=== PATIENT | female | born 1955 | race Hispanic/Latino ===

== ENCOUNTER → 2020-01-18 11:28 | Outpatient (CLI) | payer OTHER, MEDICAID, SELFPAY ==
[2020-01-19 08:39] LABS: COVID19 Sendout Not Detected (Not Detect)
== END ==
PROVIDERS: PCP Internal Medicine; Visit Provider Physician Assistant
DX: Z11.59 Encounter for screening for other viral diseases (principal)
CPT/HCPCS: 87635

== ENCOUNTER 2020-01-21 10:26 | Day surgery (SDC) | payer OTHER, MEDICAID, SELFPAY ==
[2020-01-15 13:45] VITALS: BMI 36.8
[2020-01-21] VITALS (15 sets, daily range): BP systolic 81–154; BP diastolic 52–90; PULSE 69–94; RESP 13–72; TEMP 35.1–37; O2SAT 85–98; BMI 36.5
--- NOTE | 2020-01-21 11:16 | DI.RAD.S_ITS ---
PROCEDURE: XR KNEE RT 1TO2V INDICATIONS: post op films TECHNIQUE: 2 view(s) of the knee acquired. COMPARISON: [facility] [place], XR KNEE ARTHRITIC SERIES RT, 11/21/2019, 13:56. FINDINGS: Bones: Patient is status post knee joint arthroplasty. Hardware components are in expected positions. Visualized bony structures are intact. Soft tissues: Overlying postoperative changes are noted. IMPRESSION: Normal postoperative examination. Dictated by: Joe Reveles M.D. on 01/21/2020 at 14:38 Approved by: Joe Reveles M.D. on 01/21/2020 at 14:38
[2020-01-21] MEDS: ACETAMINOPHEN 325 MG TABLET 975 MG PO (11:26)
[2020-01-21] MEDS: LACTATED RINGERS 1,000 ML 42 ML IV ×2 (11:28→14:36)
[2020-01-21] MEDS: CELECOXIB 200 MG CAPSULE PO (11:28)
--- NOTE | 2020-01-21 12:02 | PM.PREOP ---
Pre-operative Note COVID-19 COVID-19 status: Negative Result date/Date tested (Pos, Neg/Pending): 01/18/20 Interval Note History & Physical reviewed/Exam performed by Physician: Yes Changes to H&P: No
--- NOTE | 2020-01-21 12:14 | PM.OP.1 ---
Operative Date/Time/Diagnoses Date of procedure: 01/21/20 Time of procedure: 14:49 Pre-op diagnosis: Right knee osteoarthritis Post-op diagnosis: same Procedure & Clinicians Procedure: Right total knee replacement Same procedure as scheduled: Yes Indications: The patient has had progressively worsening right knee pain with radiographic changes consistent with arthritis. Non-operative management has failed and the patient has requested total knee replacement. The risks, benefits and alternatives to surgery were discussed with the patient prior to proceeding. Risks discussed included, but were not limited to, failure to relieve pain, stiffness, infection, nerve damage, deep venous thrombosis, pulmonary embolism, stroke, coma, heart attack, permanent paralysis and , as well as the potential need for eventual revision of the prosthetic. Surgeon: Ranjit Perez Outdoor Recreation Specialist: Alice Clay Click Yes if Unassisted: No Anesthesia Type: General, Spinal and Local Operative Notes Findings: Significant medial and moderate patellofemoral osteoarthritis. Closure Type: primary Specimen(s): none sent Prosthetic devices, grafts, tissues, transplants, or devices: Implants used in this procedure were manufactured by the [employer] and included the BCS II Journey total knee replacement with a size 2 Oxinium femoral component, a size 2 right non porous tibial base plate, a 10 mm cross-linked polyethylene insert and a 7.5 mm x 29 mm round Hollie II patellar component. Applied: implant(s) Estimated Blood Loss (mL): 25 Blood products transfused: none Tourniquet time (min): 51 Procedure in detail: The patient was seen in the pre-operative area, where the patient identified the right knee as the operative site and this was marked with my initials. The patient received pre-operative antibiotics, and was taken to the operating room and placed on the operative table in the supine position. After satisfactory anesthesia, a radio time buyer out was performed. The right leg was encircled with a tourniquet about the proximal thigh, and the leg was prepared from the toes to the tourniquet with ChloroPrep in the usual fashion and draped through sterile drapes. The leg was elevated and exsanguinated with Eschmark bandage and the tourniquet inflated to 250 mmHg pressure. The knee was approached through an approximately 18 cm incision centered over the patella and carried into the knee through a medial parapatellar arthrotomy. The anterior osteophytes and soft tissues were removed. The rotational landmarks of [place]'s line and the transepicondylar axis were marked on the femur with electrocautery, and intramedullary guide holes for the femur and tibia were created. The distal femoral cut was made in 6 degrees of valgus using the intramedullary guide at the primary cut setting. The proximal tibial cut was then made using the intramedullary guide, taking 9 mm of bone off the less involved side. The extension gap was checked and the rotation of the femoral component confirmed with the gap balancing system. The anterior, posterior and chamfer cuts were then made. The posterior osteophytes and soft tissues were then removed. The posterior capsule was injected with part of a mixture of 60 ml 0.25% Marcaine mixed with 20 ml Exparel and 4 mg of morphine for post-operative pain control. The remainder of this mixture was injected into the capsule and subcutaneous tissues during cement curing. The tibia was prepared with the rotation set by an extra medullary guide. Trial tibial and femoral components were then placed and the intercondylar notch cut through the femoral trial. Range of motion was 0-135 degrees, with good stability throughout the range. The patella was then cut to accommodate the patellar prosthetic. There was no need for a lateral release. The trials were then removed, and the femoral hole plugged with a bone plug. The bone was prepared with pulsatile lavage, and dried with a sponge. Cement was applied and the final prosthetics placed. Excess cement was removed during and after cement curing. After confirming there was no extruded cement posteriorly, the final tibial insert was placed. The knee was copiously irrigated and the tourniquet deflated. Hemostasis was obtained. The capsule was closed with interrupted # 2 polyester suture. The subcutaneous layer was closed with 3-0 Vicryl, and the skin with a running 3-0 V-Lock suture and Dermabond. An Aquacel Ag dressing was applied and the patient was taken to recovery having tolerated the procedure well. Complications: none Post-operative Condition: stable Disposition: PACU Plan for aftercare: The patient will be maintained on a standard total knee replacement protocol with weight bearing as tolerated. The patient will receive aspirin and sequential compression devices for DVT prophylaxis. The patient will be discharged home when safe for the home environment.
[2020-01-21] MEDS: CEFAZOLIN 2 GM/100 ML FROZ.PIGGY IV (13:08)
[2020-01-21] MEDS: TRANEXAMIC ACID 1,000 MG VIAL 1000 MG IV ×2 (13:30→14:28)
--- NOTE | 2020-01-21 13:41 | SUR.OPER ---
Supine on padded OR bed. Pillow under head, arms secured on padded armboards <90 degree abduction. Safety belt across torso. Non-operative leg secured with tape over blanket over lower leg. Operative leg secured in DeMayo/Herberth positioner.
[2020-01-21] MEDS: BUPIVACAINE 0.25% W/ EPI 30 ML VIAL 60 ML INJ (13:53)
[2020-01-21] MEDS: MORPHINE 4 MG/ML INJ INJ (13:54)
[2020-01-21] MEDS: BUPIVACAINE LIPOSOME 266 MG/20 ML VIAL INJ (13:55)
--- NOTE | 2020-01-21 15:34 | SUR.PHASEI ---
Stable PACU stay, report called
--- NOTE | 2020-01-21 15:56 | SUR.PHASEI ---
Pt transported up to room, left in mario condition. Bed low, locked and scd's on, call light in reach.
[2020-01-21] MEDS: LACTATED RINGERS 1,000 ML 100 ML IV (16:06)
[2020-01-21] MEDS: ACETAMINOPHEN 325 MG TABLET 650 MG PO ×2 (16:06→21:00)
--- NOTE | 2020-01-21 16:12 | PC.ADMIT ---
[address] Admission Note: The patient,Chelsy Cuevas,64 y/o, was given written information regarding hospital policies, unit procedures and contact persons. Patient's smoking status: Never smoker. Vital Signs - 8 hr 01/21/20 11:40 01/21/20 15:07 01/21/20 15:12 Temperature 98.6 F 97.7 F Pulse Rate 80 89 90 Respiratory Rate 16 22 20 Blood Pressure 154/90 H 88/55 L 81/52 L Pulse Oximetry 98 85 L 92 01/21/20 15:15 01/21/20 15:17 01/21/20 15:23 Temperature Pulse Rate 94 H 90 91 H Respiratory Rate 18 19 20 Blood Pressure 95/53 L 96/56 L 93/58 L Pulse Oximetry 89 L 94 95 01/21/20 15:31 01/21/20 15:38 01/21/20 15:58 Temperature 97.7 F 95.2 F L Pulse Rate 81 81 73 Respiratory Rate 20 13 16 Blood Pressure 113/64 105/68 117/72 Pulse Oximetry 96 95 95 Patient up from PACU at 1550, Awake and alert. Daughter here to help translate. Drsg (isac bandage) to Rt knee CDI. SCD's in place and IVF infusing. Patient denies pain at this time.
[2020-01-21] MEDS: ONDANSETRON 4 MG ODT PO ×2 (17:02→22:21)
--- NOTE | 2020-01-21 19:20 | PC.NURSE ---
Addendum entered by Ying Dweyr R.N. 01/21/20 21:41: Reports pain to RLE 06/08, took scheduled ibuprofen/tylenol. CMS intact. Denied nausea but after taking her HS meds one at a time she had a few dry heaves and belched. Daughter Nelli stated that her Mom Chelsy said that every time she drinks water she feels nauseated. Small amt of applejuice given per pt request. After belching patient declined antiemetic saying she felt better. Patient & daughter instructed to call nursing for any concerns-they agree to this plan. Original Note: Post-op notes: Chelsy brought from PACU awake, drowsy, oriented to situation. Reports numbness from hips to toes, can wiggle toes, move feet & legs in bed. Feet/legs are warm to the touch, pedal pulses present bilaterally. Wearing calf SCD's bilaterally. IVF infusing as ordered. Shortly after admitted she reported nausea, had few dry heaves, no emesis. medicated with SL Zofran which she said relieved nausea, refusing hydroxyzine when offered. Able to eat few bites of chicken noodle soup, saltines & sip on ice water. Daughter at bedside translating for patient & nursing staff, as patient is Zimbabwean speaking & not fluent in Mongolian. She told her daughter that she felt like she urinated when having dry heaves earlier. Incontinent of large amt of urine, also able to void additional 125 ml urine via bedpan. Linens changed, jarrett-care given. Pt reports feels relief after voiding, denies other needs/concerns. Daughter at bedside, encouraged to call nurse for any needs/concerns.
[2020-01-21] MEDS: DOCUSATE 100 MG CAPSULE PO (21:00)
[2020-01-21] MEDS: METFORMIN HCL 500 MG TABLET PO (21:00)
[2020-01-21] MEDS: ATORVASTATIN 10 MG TABLET PO (21:02)
[2020-01-21] MEDS: ASPIRIN EC 81 MG TABLET PO (21:02)
[2020-01-21] MEDS: IBUPROFEN 400 MG TABLET PO (21:05)
[2020-01-21] MEDS: FLUTICASONE 110MCG HFA 120 PUFF INH (22:16)
[2020-01-22] VITALS: BP 149/80; PULSE 79; RESP 18; TEMP 36.1; O2SAT 94
--- NOTE | 2020-01-22 01:01 | PC.NURSE ---
Addendum entered by Michelle Thayer R.N. 01/22/20 06:38: States numbness in foot is resolved. Pain is 3/10 after being up to BSC but declines offer of pain medication. Removed oxygen to determine if still needed. Original Note: Patient seen and assessed at 2337. Is alert and oriented. Divehi speaking with daughter at bedside interpreting. Breath sounds diminished at bases. On oxygen at 1L/min per NC with sat of 94%. HRR with elevated BP of 149/80. Denies nausea. BT present but denies flatus. Denies dysuria, frequency or urgency with urination. Able to move self in bed. Needs 1 assist + walker when up to BSC due to weakness in right LE. Still has some residual numbness on plantar surface of right foot but other CMS is intact. Aquacel dressing covered with isac wrap to right LE is CDI. Wearing bilateral calf SCD's. Denies pain.
[2020-01-22] MEDS: IBUPROFEN 400 MG TABLET PO ×3 (01:26→09:08)
[2020-01-22] MEDS: LACTATED RINGERS 1,000 ML 100 ML IV (02:45)
[2020-01-22 05:19] VITALS: BP 139/75; PULSE 78; RESP 16; TEMP 36.7; O2SAT 98
[2020-01-22 06:34] LABS: Hemoglobin 10.3 g/dL (12.0-16.0)
[2020-01-22] MEDS: hydrOXYzine pamoate 25 MG CAPSULE PO (07:52)
[2020-01-22] MEDS: OXYCODONE IR 5 MG TABLET PO ×2 (07:52→11:04)
[2020-01-22 07:55] VITALS: BP 136/52; PULSE 75; RESP 17; TEMP 36.8; O2SAT 93
--- NOTE | 2020-01-22 08:13 | P.DS_ITS ---
History of Present Illness History of Present Illness Date Patient Seen: 01/22/20 Time Patient Seen: 08:13 Chief complaint: RT TKA *OPB* Narrative: The history and physical are contained in the chart in a previously completed note. Please refer to that note for this information. Discharge Providers Provider Discharge Date: 01/22/20 Primary care physician: Karen Seth Consults: 01/21/20 15:48 Consult to Discharge Planning Routine Comment: Consult to Physical Therapy Evaluate & Treat Comment: Physician Instructions: postop TKA protocol Consult to Respiratory Therapy Evaluate & Treat Comment: Physician Instructions: Evaluate and treat Discharge provider: Ranjit Perez MD Summary Hospital Course Discharge Diagnosis: 1. Right knee osteoarthritis 2. Post hemorrhagic anemia Hospital Course: The patient was admitted to the hospital and taken directly to the operating room where she underwent a right total knee replacement without complications. She tolerated this procedure well. On postoperative day 1 it is anticipated she will be ready for discharge later today. Status at Discharge Cognitive/behavioral status at discharge: oriented Functional status at discharge: uses cane/walker Overall status at discharge: patient is progressing back to baseline Time Spent with Patient Time spent: Less than 30 minutes Exam Vital Signs (past 8 hours): - 01/22/20 05:19 Temperature 98.0 F Pulse Rate 78 Respiratory Rate 16 Blood Pressure 139/75 Pulse Oximetry 98 Oxygen Delivery Method Nasal Cannula Oxygen Flow Rate 1 Narrative Exam Narrative: Right knee wound is dressed with no drainage on the bandage. Calf is soft. Light touch and motion are intact in the right lower extremity. Objective Labs Result Diagrams: 01/22/20 05:55 Labs: Laboratory Results - last 24 hr 01/22/20 05:55 Hgb 10.3 L Hct 32.0 L Discharge Assessment & Plan Assessment and Plan Assessment: Stable postoperative day 1 status post right total knee replacement. She has the anticipated post hemorrhagic anemia. Plan of Treatment: Physical therapy this morning than likely discharge later in the day. She will follow up in my office in 10-14 days. Prescriptions for oxycodone and hydroxyzine have been provided. She will continue low-dose aspirin twice a day for DVT prophylaxis. Discharge Plan Discharge Plan Patient Disposition: Home Discharge Med Rec/Prescriptions Prescriptions: New acetaminophen 325 mg Tablet 650 mg PO TID 30 Days Qty: 180 RF: 0 aspirin 81 mg Tablet,Delayed Release (Dr/Ec) 81 mg PO BID 42 Days Qty: 84 RF: 0 hydroxyzine pamoate 25 mg Capsule 25 mg PO Q6HR PRN (Reason: Nausea) Qty: 40 RF: 0 oxycodone 5 mg Tablet 5 mg PO Q4H PRN (Reason: Pain, Moderate (4-6)) Qty: 40 RF: 0 Continued metformin 500 mg Tablet 500 mg PO BID RF: 0 atorvastatin 10 mg Tablet 10 mg PO BEDTIME RF: 0 Flovent HFA 110 mcg/actuation Hfa Aerosol Inhaler 1 puff INHALATION BID RF: 0 Asmanex Twisthaler 220 mcg/ actuation (60) aerosol powdr breath activated 1 inh INHALATION BID RF: 0 Follow up/Referrals: Karen Seth [Primary Care Provider] - Ranjit Perez MD [Physician] - 2 Weeks Discharge Orders: Discharge (Order); Ordered 01/22/20 Ordered By: Ranjit Perez Provider Discharge Instructions Diet: Diet as Tolerated and Carb-consistent/Diabetic Activity: You may bear weight as tolerated on your right leg. Cold/Heat Therapy: Apply ice to the right knee for 15 minutes of every hour as needed for pain control. Skin/Wound/Dressing Care Report to your healthcare provider any signs of infection, such as:: chills, fe fabio, night sweats, increased pain, unusual drainage and unusual redness Dressing: You may remove the Denis wrap 3 days after surgery and shower normally. Leave the deeper dressing in place until seen in the office. If the center strip of the deeper dressing becomes saturated with either water or blood, please call the office to have it changed. Visit Report/Discharge Packet Instructions: DI for Knee Replacement Stand Alone Forms: Surgery Discharge Discharge Data Primary Care Provider: Karen Seth Attending Provider: Ranjit Perez Quality VTE Deep Vein Thrombosis/Pulmonary Embolism Present on Admission: No
[2020-01-22] MEDS: FLUTICASONE 110MCG HFA 120 PUFF INH (09:01)
[2020-01-22] MEDS: METFORMIN HCL 500 MG TABLET PO (09:01)
[2020-01-22] MEDS: ASPIRIN EC 81 MG TABLET PO (09:02)
[2020-01-22] MEDS: ACETAMINOPHEN 325 MG TABLET 650 MG PO (09:02)
[2020-01-22] MEDS: DOCUSATE 100 MG CAPSULE PO (09:02)
--- NOTE | 2020-01-22 10:10 | PT.IIE ---
Current Diagnoses Unilateral primary osteoarthritis, right knee (01/21/20) Surgery Performed Operation Date: 01/21/20 12:45 Actual Procedures p Total Knee Arthroplasty(Right) - Ranjit Perez MD Surgical History (Last Updated 01/15/20 @ 14:17 by Aicha Steele, RN) History of surgery (Acute) Hx of cholecystectomy (Acute) Medical History (Last Updated 01/15/20 @ 13:55 by Aicha Steele RN) Arthritis (Acute) Asthma (Acute) Diabetes mellitus, type II (Acute) Dyslipidemia (Acute) Osteoarthritis (Acute) Physical Therapy Inpatient Evaluation/Re-Eval M1 PT/OT-IP Prior Functional Status Start: 01/22/20 08:31 Freq: NEEDED Status: Active Protocol: Document 01/22/20 10:06 AW (Rec: 01/22/20 10:13 AW [email or web address]) Medical Review Prior Functional Status Medical History Reviewed Yes Communication Pt is an effective verbal communicator whose first language is Slovak. Her daughter, Gill, was present at this meeting to provide interpretation. Mobility and Gait Independent with household mobility. She is capable of managing grocery shopping trips with a cart for support. Activities of Daily Living and IADL's Independent with the exception of needing occasional assistance with shoes and socks. Social History Household Members spouse,children Living Arrangements House Number of Floors (Floors) One Floor Number of Stairs To Enter/Railing? 2STE with narrow bilateral rails Home Environment Standard Height Toilet,Tub/ Shower Home Equipment Front Wheel Walker,Straight Cane Additional Social History Comment Pt lives with her , Kyle, and daughter, Seble. Her other daughter, Gill, is planning to stay with the pt at discharge as long as needed . M2 PT-IP Current Condition Start: 01/22/20 08:31 Freq: NEEDED Status: Active Protocol: Document 01/22/20 10:06 AW (Rec: 01/22/20 10:13 AW [email or web address]) Physical Therapy Current Condition Current Condition Evaluation Date 01/22/20 Treatment Diagnosis R TKA; difficulty in walking Onset Date 01/21/20 Weight Bearing Status Weight Bearing Status Weight Bear as Tolerated M3 PT-IP Subjective Start: 01/22/20 08:31 Freq: NEEDED Status: Active Protocol: Document 01/22/20 10:06 AW (Rec: 01/22/20 10:13 AW [email or web address]) Subjective Physical Therapy Visit Type Type Initial Evaluation Visit Start Time 09:08 Visit Stop Time 09:45 Total Visit Minutes 37 Physical Therapy Visit Comments Patient Comments Pt is willing to participate with PT Patient Goals Pt is motivated to return home Therapy Pain Assessment Pain When Pain Assessed During Mobility Pain Present Pain Present Pain Reported Location Right Knee Intensity 5 Scale Used Numeric (0 - 10) Pain Management Techniques Apply Cold,Timing of Activity with Medications M4 PT-IP Mobility and Gait Start: 01/22/20 08:31 Freq: NEEDED Status: Active Protocol: Document 01/22/20 10:06 AW (Rec: 01/22/20 10:24 AW [email or web address]) PT-Bed Mobility Assessment Supine to Sit Supine to Sit Standby Assistance Scooting Scooting to Edge of Bed Standby Assistance PT-Transfer Assessment Sit to and From Stand Sit to and from Stand Standby Assistance,Use of Upper Extremities Equipment Transfer Assistive Device Gait Belt,Front Wheeled Walker Transfers Transfer Destination Chair,Toilet Transfer Technique pt ambulated with FWW Transfer Ability Level of Assist Standby Assistance Comments Mobility Comments Pt completed all bed mobility SBA and stood from edge of bed with FWW SBA. She ambulated to the bathroom with FWW SBA and completed transfer to and from the toilet SBA. She then ambulated in the halls with good response to cues for walker management and posture using FWW SBA. She completed stair training and returned to the room where she transferred to the chair SBA. Daughter, Gill, was present throughout and able to provide appropriate cues and assist. Gait Assessment Gait Gait Assistance Required: Standby Assistance Distance (Feet) 120 Able to Maintain Weight Bearing Status Yes During Gait Assistive Devices Assistive Device Gait Belt,Front Wheeled Walker Orthotic/Prosthetic Devices or Brace: No Gait Deviations General Gait Pattern Antalgic,Decreased Stride Length,Decreased Feet Clearance,Flexed Trunk,Step-to Gait Factors Limiting Gait Function Factors Limiting Gait Function Decreased Strength,Limited Range of Motion,Pain,Poor Balance Comments Gait Comments Pt responded well to cues for safe walker management and posture. Stair Climbing Assessment Evaluation Level of Assist On Stairs Standby Assistance Devices Stair Climbing Assistive Devices Left Railing,Right Railing Technique/Endurance Stair Climbing Direction Ascend and Descend Stair Climbing Technique Step to Step Number of Steps Climbed 3 Query Text: Stair Climbing Set # Repetitions (reps) 1 Comments Stair Climbing Comments Pt able to sequence stairs after brief demo without needing additional cues. Daughter, Gill, able to provide safe assist. PT-Balance Assessment Sitting Balance and Reactions Static Sitting Balance Ability Normal Dynamic Sitting Balance Ability Normal Standing Balance and Reactions Static Standing Balance Ability Good Dynamic Standing Balance Ability Good Device Used FWW M5 PT-IP Objective Assessments Start: 01/22/20 08:31 Freq: NEEDED Status: Active Protocol: Document 01/22/20 10:06 AW (Rec: 01/22/20 10:14 AW [email or web address]) Orientation Orientation/Cognition Level of Alertness Alert Orientation Name,Day of Week,Place, Situation Language Function Ability No Deficits Noted,Mongolian as Second Language Safety Awareness Understands Safety Issues Memory Description No Deficits Noted Gross Range of Motion Upper Extremity ROM Assessment Within Functional Limits Lower Extremity ROM Assessment Right Impaired Strength Upper Extremity Strength Assessment Within Functional Limits Lower Extremity Strength Assessment Right Impaired Coordination Assessment Gross Coordination Gross Coordination WNL Sensation Assessment Sensation Gross Sensation WNL Muscle Tone Muscle Tone WNL Yes M6 PT-IP Treatment Start: 01/22/20 08:31 Freq: NEEDED Status: Active Protocol: Document 01/22/20 10:06 AW (Rec: 01/22/20 10:15 AW [email or web address]) Physical Therapy Treatment Exercises Exercises Ankle Pumps,Gluteal Sets,Quad Sets,Passive Knee Extension Hang Education Education Provided Precautions,Weight Bearing Status,Post-Op Packet,Safety Other Treatments Other Treatment Performed Provided education on role of PT, plan of care, weightbearing status, safe use of FWW, and sizing for FWW. M7 PT-IP Assessment and Plan Start: 01/22/20 08:31 Freq: NEEDED Status: Active Protocol: Document 01/22/20 10:06 AW (Rec: 01/22/20 10:18 AW [email or web address]) PT Summary Assessment and Plan Potential Rehabilitation Potential Excellent Status of Condition at Evaluation Stable Summary Impairments Pain,ROM,Strength,Balance,Bed Mobility,Transfers,Gait, Activity Tolerance Progress Towards Goals Safe For Discharge Assessment Summary Jose is a 64 yo Slovak- speaking woman seen for PT evaluation on POD1 following R TKA. She is independent at baseline with household and short distance community ambulation. On evaluation, she required SBA for all mobility including transfers, gait with FWW, and stairs. She is safe to discharge to home with family support and outpatient PT once medically cleared. Pt may need youth-sized walker. PT will coordinate with daughter, Gill. Goals Bed Mobility Goal Independent Transfer Goal Independent,Front Wheeled Walker Gait Goal Independent,Front Wheel Walker Gait Distance 200 Other Goals - up/down 2 stairs with B rails SBA Days to Meet Goals 2 Frequency of Treatment Frequency Of Treatment Twice a Day Treatment Plan Physical Therapy Treatment Plan Bed Mobility Training,Transfer Training,Gait Training, Therapeutic Exercise,Balance Retraining,Post Op Education, Discharge Planning,Hot or Cold Pack Recommendations To Nursing Amount of Assist Needed Standby Assistance Discharge Recommendations PT Discharge Recommendations Home with Assistance, Outpatient PT Transportation Needs at Discharge Private Vehicle
--- NOTE | 2020-01-22 10:41 | CM.DANOTE ---
DCP: Case received, EMR reviewed and met with patient. Introduced self and role. Patient does not speak Portuguese, but daughter, Gill, was in the room and able to communicate. Was able to obtain information regarding patient's baseline activity status prior to surgery, and living situation. DCP assessment completed with information currently available. Patient is a 64 year old female who admitted yesterday morning to the care of the orthopedic team. PCP: Dr. Seth. Payer: confirmed: [place]/Medicaid. Patient came to the hospital via private vehicle for a surgical procedure. She had right total knee surgery. Patient has history of osteoarthritis. Patient was sitting up in bed, alert and oriented, she is , does not speak Portuguese. Daughter, Gill, was in room and confirmed that patient and her , Kyle, live in a small home approximately 800 square feet. Indicated that her sister lives with patient and , and has good support. They will be assisting patient when she goes home. P: Patient has discharge orders, and the plan is for home today. She will need to be cleared by physical therapy. Telma Najera RN/Examiner Rating Clerk
--- NOTE | 2020-01-22 11:05 | PC.NURSE ---
Pt showered, Aquacell with quarter-size Shadowy drainage; jarrett-skin pink, intact; c/m/s positive; ppp; ls clear; RA 100%; IS 1500; pt transfers to bsc and gait stable with fww; pt instructions give to patient with daughter's translation; instructions included s/sx infection, RX medications, f/u appointment; PO oxycodone for mild to moderate pain; @1108 pt escorted via wheelchair to personal vehicle with personal belongings in hand
== END 2020-01-22 11:09 | disposition home or self-care (01) ==
LOC: OR 13:39 → AC 13:39
PROVIDERS: PCP Internal Medicine; Referring Provider Internal Medicine; Visit Provider Orthopaedic Surgery
PROC: 0SRC0JZ Replacement of Right Knee Joint with Synthetic Substitute, Open Approach (ICD-10-PCS; CPT 27447; principal; 2020-01-21 12:45)
DX: M17.11 Unilateral primary osteoarthritis, right knee (principal); E11.9 Type 2 diabetes mellitus without complications; J45.909 Unspecified asthma, uncomplicated; E78.5 Hyperlipidemia, unspecified; Z79.84 Long term (current) use of oral hypoglycemic drugs
CPT/HCPCS: 27447; 36415; 73560; 82962; 85014; 85018; 94762; 97116; 97161; C1776; C9290; J0690; J2250; J2270; J2274; J2405; J2704; J3010